=== PATIENT | male | born 1950 | race Caucasian/White ===

== ENCOUNTER 2021-01-08 19:07 | Emergency (ER) | payer MEDICARE, SELFPAY ==
[2021-01-08 19:18] VITALS: BP 145/74; PULSE 76; RESP 18; TEMP 36.5; O2SAT 99
--- NOTE | 2021-01-08 19:59 | ED.SKABFB ---
HPI - Skin/Abscess/Foreign Bdy General Chief complaint: Skin/Abscess/Foreign Body Stated complaint: right hand swelling Source: patient and RN notes reviewed Mode of arrival: ambulatory History of Present Illness HPI narrative: This is a 70-year-old male who presented to urgent care with trauma to his right hand. According the patient he was working in the yard and a branch went through his middle finger he does have a puncture wound to that finger. Patient notes that afterwards his finger swelled up and became red. At home he did clean it and covered with a Band-Aid. Patient has full range of motion with pain to the hand pulses are present, no neurovascular deficiency noted. The patient denies SOB, CP, palpitation, extremity numbness, lightheadedness, dizziness, constipation, diarrhea, chills, or fever. Related Data Allergies Allergy/AdvReac Type Severity Reaction Status Date / Time No Known Allergies Allergy Unverified 08/02/15 23:22 Review of Systems Review of Systems: A 14 organ system Review of Systems was performed and pertinent positives included in the HPI, otherwise remaining ROS is negative. [facility] Family History Family History (Updated 01/08/21 @ 20:01 by KINDRA Lopez-Leodan) Other Family history non-contributory Exam Narrative: GENERAL: This is a well-nourished, well-developed patient, in no apparent distress. HEAD: normocephalic, atraumatic. EYES: PERRL. Sclera clear/white. Vision is grossly intact. EARS: External ears normal, auditory canals clear and without drainage, TMs normal without perforation. Hearing grossly intact. NOSE: External nose normal with no obvious nasal discharge, nares without redness, no rhinorrhea. THROAT: Mucous membranes moist, posterior pharynx clear. NECK: Neck supple, non-tender without lymphadenopathy, masses or thyromegaly. CARDIOVASCULAR: Regular rate and rhythm without murmurs, gallops, or rubs. RESPIRATORY: Clear to auscultation. Breath sounds equal bilaterally. No wheezes, rales, or rhonchi. GASTROINTESTINAL: Abdomen soft, non-tender, nondistended. Bowel sounds are active. No hepato-splenomegaly, or palpable masses. No guarding. SKIN: Right middle finger edematous with erythema and 2 puncture sites, pulses are palpable patient has full range of motion. NEURO: awake, alert, and oriented to person, place and time. There were no obvious focal neurologic abnormalities. Steady gait EXTREMITIES: Normal range of motion. No edema. No calf tenderness. Negative Homans sign bilaterally. BACK: Nontender without deformity or crepitance. No flank tenderness. Course Vital Signs Vital signs: Vital Signs Temperature 97.7 F 01/08/21 19:18 Pulse Rate 76 01/08/21 19:18 Respiratory Rate 18 01/08/21 19:18 Blood Pressure 145/74 H 01/08/21 19:18 Pulse Oximetry 99 01/08/21 19:18 Temperature 97.7 F 01/08/21 19:18 Pulse Rate 76 01/08/21 19:18 Respiratory Rate 18 01/08/21 19:18 Blood Pressure 145/74 H 01/08/21 19:18 Pulse Oximetry 99 01/08/21 19:18 Discharge Plan Discharge Clinical Impression: Cellulitis Qualifiers: Site of cellulitis: extremity Site of cellulitis of extremity: upper extremity Laterality: right Qualified Code(s): L03.113 - Cellulitis of right upper limb Patient Disposition: Home, Self-Care Condition: Stable Instructions: Antibiotic Form, Cellulitis (ED) Additional Instructions: Take medications as prescribed. Follow up with Provider within 1-2 weeks. When do I need to call the doctor? Signs of infection. These include a fever of 100.4?F (38?C) or higher, chills, or wound that will not heal. Signs of wound infection. These include swelling, redness, warmth around the wound; too much pain when touched; yellowish, greenish, or bloody discharge; foul smell coming from the cut or wound site; wound site opens up; blisters form at the site. When cellulitis is on the face, any signs of spreading to the sinus or eye must be evaluated
== END 2021-01-08 20:05 | disposition home or self-care (01) ==
PROVIDERS: Emergency Provider Nurse Practitioner; PCP Family Medicine
DX: L03.113 Cellulitis of right upper limb (principal)
CPT/HCPCS: 99213; G0463

== ENCOUNTER 2021-10-23 17:44 | Emergency (ER) | payer MEDICARE, SELFPAY ==
[2021-10-23 17:50] VITALS: BP 146/82; PULSE 87; RESP 20; TEMP 36.8; O2SAT 98
--- NOTE | 2021-10-23 17:55 | ED.URI ---
HPI - URI/Sore Throat General Chief Complaint: Upper Respiratory Infection Stated Complaint: headache no appetite nausea ears Time Seen by Provider: 10/23/21 18:00 Source: patient Mode of arrival: ambulatory Limitations: no limitations History of Present Illness HPI Narrative: Mr. Stuart is a 71-year-old male patient presenting to the clinic today with complaints of fever, headache, decreased appetite, nausea, and bilateral ear pain x5 days. He reports that he has taken 2 at home COVID test and both were negative the last test he took was this morning. He denies getting his influenza vaccine so he feels that he may have the flu. MD elicited complaint: fever and nasal congestion Related Data Home Medications Medication Instructions Recorded Confirmed No Home Medications 10/23/21 10/23/21 Allergies Allergy/AdvReac Type Severity Reaction Status Date / Time No Known Allergies Allergy Verified 10/23/21 18:04 Review of Systems Review of Systems: Pertinent positives per HPI. Patient denies any fever, chills, rash, headache, visual changes, dizziness, cough, shortness of breath, chest pain, palpitations, nausea, vomiting, diarrhea, constipation, abdominal pain, or any urinary issues. [facility] Family History Family History Other Family history non-contributory Comments At the time of my signature, I reviewed and agree with the nursing past medical, surgical, social, and family history. There is no relevant family history pertinent to the patient complaint. Exam Narrative: General: Well-developed, well nourished, in no apparent distress Head: Normocephalic, atraumatic Eyes: Pupils equally round and reactive to light bilaterally, EOM intact, sclera and conjunctive clear, no discharge, lids normal Ears: TMs intact and clear, ear canals ceruminous, no drainage, grossly hearing normal. Nose: Nares patent, clear nasal discharge, moderate inflammation, no sinus tenderness. Mouth: Oral pharynx without lesions or masses, good dentition, MMM. Neck: Supple, trachea midline, no enlargement of anterior or posterior cervical nodes, no thyroid masses or goiter palpable. Cardio: Regular rate and rhythm, s1 and s2 normal, no murmur appreciated. Resp: Clear to auscultation bilaterally, no rhonchi, rales, wheezing or rubs Course Course Emergency Course: Portions of this record may have been created with voice recognition software. Level of Care: Express Care Visit Vital Signs Vital signs: Vital Signs Temperature 36.8 C 10/23/21 17:50 Pulse Rate 87 10/23/21 17:50 Respiratory Rate 20 10/23/21 17:50 Blood Pressure 146/82 H 10/23/21 17:50 Pulse Oximetry 98 10/23/21 17:50 Temperature 36.8 C 10/23/21 17:50 Pulse Rate 87 10/23/21 17:50 Respiratory Rate 20 10/23/21 17:50 Blood Pressure 146/82 H 10/23/21 17:50 Pulse Oximetry 98 10/23/21 17:50 Vital signs reviewed Procedures Ear Wax Removal Both Ears: Ear Wax Removal Date: 10/23/21 Results: Re-examined: some cerumen remains TM Examination: TM(s) intact, normal appearance Ear Canal Exam: atraumatic Patient Tolerated Procedure: well Complications: no problems Technique: ear canal irrigated and ear canal curetted Additional Comments: Bilateral ear canals ceruminous and impacted with cerumen. Verbal consent obtained to irrigate bilateral ears. Half-normal saline have warm water used to irrigate bilateral ears with successful removal of earwax with some remnants remaining. A small amount of cerumen was removed using the ear curette to the right ear. MDM - URI/Sore Throat MDM Narrative Medical decision making narrative: At the time of visit patient is resting comfortably on the exam table. Influenza testing was completed and was negative in the clinic. I suspect the patient has a viral syndrome and discussed supportive measures and he
== END 2021-10-23 18:30 | disposition home or self-care (01) ==
PROVIDERS: Emergency Provider Nurse Practitioner Family; PCP Family Medicine
DX: B34.9 Viral infection, unspecified (principal); H61.23 Impacted cerumen, bilateral
CPT/HCPCS: 69209; 87804; 99213; G0463

== ENCOUNTER 2024-12-11 12:49 | Emergency (ER) | payer MEDICARE, SELFPAY ==
--- NOTE | ~2024-12-11 | XR_ITS ---
Left Shoulder Technique: AP and axillary views were obtained. Clinical History: Injury Findings: No fracture or dislocation is seen. Osseous alignment is anatomic. The glenohumeral joint d emonstrates mild degenerative change. There is moderate AC joint degenerative change. Soft tissues ar e unremarkable. Impression: Degenerative changes, as above. Reviewed, dictated and finalized at location M. Impression: Degenerative changes, as above.
--- NOTE | ~2024-12-11 | CT_ITS ---
CT Facial Bones and Cervical Spine Clinical Indication: Injury Technique: Contiguous axial scans were obtained through the facial bones and cervical spine followed by coronal and sagittal reconstructions. Dose reduction technique was used on this scan by utilizing automated exposure control and iterative reconstruction technique. The dose-length product (DLP) was 531.38 mGy-cm. Findings: CT facial bones: No fractures are identified. The visualized paranasal sinuses are clear. Intraorbita l soft tissues appear normal. CT cervical spine: No acute fracture. There is minimal grade 1 anterolisthesis of C4 over C5. There a re mild degenerative disc changes in the cervical spine. There is advanced degenerative change at the articulation of the odontoid process with the anterior arch of C1. There is extensive facet arthropa thy in the cervical spine. There is right neural foraminal narrowing at C3-C4. There is left neural f oraminal narrowing at C4-C5. There is left neural foraminal narrowing at C5-C6. No prevertebral soft tissue swelling. Impression: No fracture is seen in the facial bones. No fracture or subluxation of the cervical spine. Degenerative change of the cervical spine, as above. Reviewed, dictated and finalized at location . Impression: No fracture is seen in the facial bones. No fracture or subluxation of the cervical spine. Degenerative change of the cervical spine, as above.
--- NOTE | ~2024-12-11 | CT_ITS ---
Non-contrast Head CT History: Head injury Technique: Axial non-contrast imaging of the brain was performed. Dose reduction technique was used on this scan by utilizing automated exposure control and iterative reconstruction technique. The dose -length product (DLP) was 605.33 mGy-cm. Findings: There is no evidence of intracranial hemorrhage, mass lesion, or acute infarct. Brain par enchyma appears normal. The ventricles and subarachnoid spaces are normal in size. The calvarium ap pears normal. The visualized paranasal sinuses and mastoid air cells are clear. Impression: No significant abnormality seen. Reviewed, dictated and finalized at location . Impression: No significant abnormality seen.
--- OUTSIDE RECORDS SUMMARY | 2024-12-11 12:52 | XMS_ITS | Continuity of Care Document ---
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, [address] [place] [address] [address] [place], [place], [id number], [place] tel:[phone] [address] [facility] [place] No Information [address] [facility] [address] [place] , [address], [place], [address], [place]. tel:[phone] Family History Family Member Type Diagnosis Age At Onset No Information Payers Payer name Insurance type Covered republican ID Authoriza tion(s) No Information Social History Type Description Quantity Date Captured Comments Sex Male Smoking Status No Information Chief Complaint And Reason For Visit No Information Reason For Referral Reason For Referral No Information History Of Present Illness Encounter Date Complaint History Of Prese nt Illness No Information Functional Status Date Functional Assessmen t No Information Instructions Date Instruction Additional Infor mation No Information Assessments Type Assessment Date No Information Patient Care Teams Name Effective Dates (start - stop) Status Members No Information
--- OUTSIDE RECORDS SUMMARY | 2024-12-11 12:52 | XMS_ITS | Data Portability ---
Author Organization [facility] [employer], Main Office Address [address] [place] [address] Assessment No assessment recorded. Plan of Treatment Reminders Order Date Submit Date Provider Last Modified By Organization Details Last Modified Time Details Appointments None recorded. Lab glycohemogl obin, total, blood 2024 025 [facility] (Lab), [address] [place], [address], 5 08:32:08 CMP, serum or plasma 2024 025 [facility] (Lab), [address] [place], [address], 5 15:15:49 TSH, serum or plasma 2024 025 [facility] (Lab), [address] [place], [address], 5 08:32:08 CBC w/ auto diff 2024 025 [facility] (Lab), [address] [place], [address], 5 08:32:09 vitamin B12, serum 2024 025 [facility] (Lab), [address] [place], [address], 5 08:32:09 vitamin D, 25-hydroxy, total, serum 2024 025 [facility] (Lab), [address] [place], [address], 5 08:32:09 magnesium, serum or plasma 2024 025 [facility] (Lab), [address] [place], [address], 5 08:32:09 PSA, serum or plasma 2024 025 [facility] (Lab), [address] [place], [address], 5 08:29:41 glycohemogl obin, total, blood 2024 025 [facility] (Lab), [address] [place], [address], 5 08:29:40 CBC w/ auto diff 2024 025 [facility] (Lab), [address] [place], [address], 5 08:29:41 vitamin D3, 25-hydroxy, serum 2024 025 [facility] (Lab), [address] [place], [address], 5 08:29:41 lipid panel, serum 2024 025 [facility] (Lab), [address] [place], [address], 5 08:29:40 hepatic function panel, serum 2024 025 [facility] (Lab), [address] [place], [address], 5 08:29:40 CMP, serum or plasma 2024 025 [email or web address] (Lab), [address] [place], [address], 5 08:29:40 glycohemogl obin, total, blood [address] (Lab), [address] [place], [address], 3 09:19:16 BMP, serum or plasma [address] (Lab), [address] [place], [address], 3 09:19:28 PSA, serum or plasma [address] (Lab), [address] [place], [address], 3 09:18:37 noninvasive colorectal cancer DNA + occult blood screening, QL, stool 2022 023 [email or web address] [address] [facility] (Cologuard Orders Only), [address], [address], [place], [address], 3 07:52:35 lipid panel, serum [address] (Lab), [address] [place], [address], 3 09:18:52 hepatic function panel, serum [address] (Lab), [address] [place], [address], 3 09:19:04 Referral None recorded. Procedures None recorded. Surgeries None recorded. Imaging None recorded. Medication Orders [employer]ora[employer] Ultra Test strips 2024 025 [id number], [address] [place], [address], 09:46:53 aripiprazol e 2 mg tablet 2022 023 [email or web address] [id number], [address] [place], [address], 08:38:05 Patient TargetsNo targets recorded. Patient Instructions Encounter Date Encounter Id Patient Instructions Last Modified By Organization Details Last Modified Time 01/18/2023 [id number] dementia rating scale-2* Not available 01/18/2023 10:45:54 multi-dimensiona l health assessment questionnaire* Not available 01/18/2023 10:46:00 care plan* [email or web address] Not available 01/04 10:46:06 advance care planning: care instructions Not available 01/18/2023 09:11:28 advance directiv es: care instructions Not available 01/18/2023 09:11:28 [place] Advance Directives Not available 01/18/2023 09:11:28 Personalized [facility] Plan and Screening Recommendations Advance Directives - Do you have one? Advance Directives - Do we have your advance directive on file in your health record? Primary Prevention/Interven tion (prevents or decreases the chance of common diseases from occurring) Smoking Risk: Non Smoker Alcohol Misuse Screening: Negative Weight: Appropriate Physical activity: Appropriate physical activity Nutrition: Good Fall Risk (screened today): Low Vaccines Pneumococcal: No further needed Influenza: Your next one in the fall of this year Chronic Disease Risks Stroke: Active diagnosis, Continue current treatment plan Heart Attack: Active diagnosis, Continue current treatment plan Clogging of the Arteries: Active diagnosis, Continue current treatment plan Diabetes: Active diagnosis, Continue current treatment plan Secondary Prevention/Interven tion (detects treatable diseases before they may cause symptoms, disability, or ) Prostate Cancer Screening: Colon Cancer Screening: Date Screening Last Performed: Eye Disease Screening: Your next exam in: Dementia Risk: Depression Screening: Active diagnosis, Continue current treatment plan Not available 01/18/2023 09:12:55 Reason for Referral None Reported. Results Created Date Observation Date Name Description Value Unit Range Abnormal Flag Note LastModifiedBy Organization Detail LastModifiedTime 01/19/2001/18/2023 LIPID PANEL cholesterol 229 mg/dL 140-19 9 high [facility] DAVID NSUS RECOM MENDA TION FOR ANNIE STERO L: ADULT CHILD LOW RISK: <200 <170 BORDE RLINE : <200- 239 ----- HIGH RISK: >240 >200 Not Available [facility] (Lab) [address] [place], [address], 01/18/2023 19:48:00 01/19/2001/18/2023 LIPID PANEL triglyceride s 75 mg/dL 0-150 NIH DAVID NSUS REPOR T RECOM MENDA TION FOR TRIGL YCERI HELEN: ADULT CHILD LOW RISK: <150 ----- BODER LINE: 150-1 99 ----- HIGH RISK: >200 ----- Not Available [facility] (Lab) [address] [place], [address], 01/18/2023 19:48:00 01/19/2001/18/2023 LIPID PANEL HDL cholesterol 63 mg/dL 40- Not Available [facility] (Lab) [address] [place], [address], 01/18/2023 19:48:00 01/19/20 23 01/18/2023 LIPID PANEL LDL cholesterol, calculated 151 mg/dL 0-130 high NIH DAVID NSUS REPOR T RECOM MENDA TIONS FOR LDL: ADULT CHILD LOW RISK <130 <110 (OPTI MAL LDL) <100 ----- BORDE RLINE : 130-1 59 ----- HIGH RISK: >160 >130 A TRIGL YCERI DE RESUL T >400 INVAL IDATE S THE CALCU LATIO N FOR LDL FRACT IONAT ION - THE LDL RESUL T WILL NOT BE REPOR WERO. Not Available [facility] (Lab) [address] [place], [address], 01/18/2023 19:48:00 01/19/20 23 01/18/2023 HEPAT IC/LI MARILEE PANEL alkaline phosphatase 101 U/L 38-126 Not Available [facility] (Lab) [address] [place], [address], 01/18/2023 19:48:05 01/19/20 23 01/18/2023 HEPAT IC/LI MARILEE PANEL alanine aminotransfe rase 20 U/L 0-50 Not Available [facility] (Lab) [address] [place], [address], 01/18/2023 19:48:05 01/19/20 23 01/18/2023 HEPAT IC/LI MARILEE PANEL aspartate aminotransfe rase 37 U/L 15-46 Not Available [facility] (Lab) [address] [place], [address], 01/18/2023 19:48:05 01/19/20 23 01/18/2023 HEPAT IC/LI MARILEE PANEL bilirubin, total 0.40 mg/dL 0.20-1 .30 Not Available [facility] (Lab) [address] [place], [address], 01/18/2023 19:48:05 01/19/20 23 01/18/2023 HEPAT IC/LI MARILEE PANEL bilirubin, conjugated (direct) 0.00 mg/dL 0.00-0 .30 Not Available [facility] (Lab) [address] [place], [address], 01/18/2023 19:48:05 01/19/20 23 01/18/2023 HEPAT IC/LI MARILEE PANEL biliurubin,u ncong. (indirect) 0.30 mg/dL 0.00-1 .1 Not Available [facility] (Lab) [address] [place], [address], 01/18/2023 19:48:05 01/19/20 23 01/18/2023 HEPAT IC/LI MARILEE PANEL total protein 7.8 g/dL 6.3-8. 2 Not Available [facility] (Lab) [address] [place], [address], 01/18/2023 19:48:05 01/19/20 23 01/18/2023 HEPAT IC/LI MARILEE PANEL albumin 4.2 g/dL 3.0-4. 4 Not Available [facility] (Lab) [address] [place], [address], 01/18/2023 19:48:05 01/19/20 23 01/18/2023 HEPAT IC/LI MARILEE PANEL globulin 3.6 g/dL 2.6-4. 2 Not Available [facility] (Lab) [address] [place], [address], 01/18/2023 19:48:05 01/19/20 23 01/18/2023 HEPAT IC/LI MARILEE PANEL A/G ratio 1.2 ratio 1.0-2. 0 Not Available [facility] (Lab) [address] [place], [address], 01/18/2023 19:48:05 01/19/20 23 01/18/2023 BASIC METAB OLIC PANEL sodium 139 mmol/ L 137-14 5 Not Available [facility] (Lab) [address] [place], [address], 01/18/2023 19:48:07 01/19/20 23 01/18/2023 BASIC METAB OLIC PANEL potassium 5.1 mmol/ L 3.5-5. 1 Not Available [facility] (Lab) [address] [place], [address], 01/18/2023 19:48:07 01/19/20 23 01/18/2023 BASIC METAB OLIC PANEL chloride 104 mmol/ L 98-107 Not Available [facility] (Lab) [address] [place], [address], 01/18/2023 19:48:07 01/19/20 23 01/18/2023 BASIC METAB OLIC PANEL carbon dioxide 30 mmol/ L 22-30 Not Available [facility] (Lab) [address] [place], [address], 01/18/2023 19:48:07 01/19/20 23 01/18/2023 BASIC METAB OLIC PANEL anion gap 10.1 mmol/ L 14-22 low Not Available [facility] (Lab) [address] [place], [address], 01/18/2023 19:48:07 01/19/20 23 01/18/2023 BASIC METAB OLIC PANEL glucose 103 mg/dL 70-99 high Not Available [facility] (Lab) [address] [place], [address], 01/18/2023 19:48:07 01/19/20 23 01/18/2023 BASIC METAB OLIC PANEL BUN 17 mg/dL 8-19 Not Available [facility] (Lab) [address] [place], [address], 01/18/2023 19:48:07 01/19/20 23 01/18/2023 BASIC METAB OLIC PANEL creatinine 0.70 mg/dL 0.66-1 .25 Not Available [facility] (Lab) [address] [place], [address], 01/18/2023 19:48:07 01/19/20 23 01/18/2023 BASIC METAB OLIC PANEL GFR >60 Refer ence Range : [place] ge GFR Healt hy Adult : >60 mL/mi n/1.7 3 m2 Chron ic Kidne y Disea se: 15-60 mL/mi n/1.7 3 m2 Kidne y Failu re: <15/m L/min /1.73 m2 www.n iddk. nih.g ov The MDRD study equat ion has not been valid ated in child romel <18 years of age; pregn ant women ; the elder ly >85 years of age; or in some racia l or ethni c subgr oups, such as Hispa nics. Outsi de the valid ated mark eters , estim ated GFR is less accur ate, requi ring clini jimena judgm ent on a case- by-ca se basis . Clini jimena inter preta tion for other races and ages must be made by the clini fifi. The MDRD study equat ion has not been valid ated for the evalu ation of serum creat inine relat ed to nutri tania l statu s or medic ation usage . For perso ns <18 years of age, a pedia tric GFR calcu lator is avail able on the [facility] websi te: https ://andreia w.robbi stuart.o rg/pr ofess ional s/kdo qi/gf r_cal culat or Not Available [facility] (Lab) [address] [place], [address], 01/18/2023 19:48:07 01/19/20 23 01/18/2023 BASIC METAB OLIC PANEL calcium 9.3 mg/dL 8.4-10 .2 Not Available [facility] (Lab) [address] [place], [address], 01/18/2023 19:48:07 01/19/20 23 01/18/2023 PSA SCREE N PSA medicare screen 3.33 NG/mL 0.00-4 .00 Not Available [facility] (Lab) [address] [place], [address], 01/18/2023 20:12:49 01/19/2001/18/2023 HEMOG LOBIN A1C HA1C 6.0 % 4.0-6. 0 Diabe ramila Scree florentino Crite vince: <5.7% Consi stent with absen ce of diabe ramila 5.7-6 .4% Consi stent with incre ased risk for diabe ramila (pred iabet es) >OR=6 .5% Consi stent with diabe ramila REFER ENCE: Diabe ramila Care 2016, 39(Casarez ppl.1 ):s13 -s22 Not Available [facility] (Lab) [address] [place], [address], 01/18/2023 20:40:18 02/02/20 23 02/01/2023 COLOG UARD cologuard result reportable NEGATI VE negati ve normal NEGAT ABNER TEST RESUL T. A negat abner Colog uard resul t indic ates a low likel ihood that a color ectal cance r (CRC) or advan glenys adeno ma (terrell omato us polyp s with more advan glenys pre-m align ant featu res) is prese nt. The chanc e that a perso n with a negat abner Colog uard test has a color ectal cance r is less than 1 in 1500 (nega tive predi ctive value >99.9 %) or has an advan glenys adeno ma is less than 5.3% (nega tive predi ctive value 94.7% ). These data are based on a prosp ectiv e cross -sect ional study of 10,00 0 indiv idual s at [facility] risk for color ectal cance r who were scree isabella with both Colog uard and colon oscop y. (Dione Stevenson et al, N Engl J Med 2014; 370(1 4):12 86-12 97) The davin l value (refe rence range ) for this assay is negat abner. COLOG UARD RE-SC REENI NG RECOM MENDA TION: Perio dic color ectal cance r scree florentino is an impor tant part of preve ntive healt hcare for asymp tomat ic indiv idual s at [place] ge risk for color ectal cance r. Follo wing a negat abner Colog uard resul t, the Ameri can Cance r Socie ty and U.S. Multi -Soci ety Task Force scree florentino guide lines recom mend a Colog uard re-sc reeni ng inter bailey of 3 years . Refer ences : Ameri can Cance r Socie ty Guide line for Color ectal Cance r Scree florentino: https ://ww w.can cer.o rg/ca ncer/ colon -rect al-ca ncer/ detec tion- diagn osis- stagi ng/ac s-rec ommen datio ns.ht ml.; Mohan CORONA, Chelsea aguirre CR, Terrence blanchard JK, Color ectal Cance r Scree florentino: Recom menda tions for Physi cians and Patie nts from the U.S. Multi -Soci ety Task Force on Color ectal Cance r Scree florentino , Am J Gastr oente rolog y 2017; 112:1 016-1 030. TEST DESCR IPTIO N: Devon site algor ithmi c harlan sis of stool DNA-b rosi yousif with hemog lobin immun oassa y. Quant itati ve value s of indiv idual bioma rkers are not repor table and are not assoc iated with indiv idual bioma rker resul t refer ence range s. Colog uard is inten ded for color ectal cance r scree florentino of adult s of eithe r sex, 45 years or older , who are at [facility] for color ectal cance r (CRC) . Colog uard has been appro eloisa for use by the U.S. FDA. The perfo rmanc e of Colog uard was estab lishe d in a cross secti onal study of [facility] adult s aged 50-84 . Colog uard perfo rmanc e in patie nts ages 45 to 49 years was estim ated by sub-g roup harlan sis of near- age group s. Colon oscop ies perfo rmed for a posit abner resul t may find as the most clini jackson signi francois sawyer n: color ectal cance r [4.0% ], advan glenys adeno ma (incl uding sessi le bernardo wero polyp s great er than or equal to 1cm diame ter) [20%] or non- advan glenys adeno ma [31%] ; or no color ectal neopl shankar [45%] . These estim ates are deriv ed from a prosp ectiv e cross -sect ional scree florentino study of 0 indiv idual s at [facility] risk for color ectal cance r who were scree isabella with both Colog uard and colon oscop y. (Dione Baker al, N Engl J Med 2014; 370(1 4):12 86-12 97.) Colog uard may produ ce a false negat abner or false posit abner resul t (no color ectal cance r or preca ncero us polyp prese nt at colon oscop y follo w up). A negat abner Colog uard test resul t does not guara ntee the absen ce of CRC or advan glenys adeno ma (pre- cance r). The curre nt Colog uard scree florentino inter bailey is every 3 years . (Amer ican Cance r Socie ty and U.S. Multi -Soci ety Task Force ). Colog uard perfo rmanc e data in a 0 patie nt pivot al study using colon oscop y as the refer ence metho d can be acces sed at the follo wing locat ion: www.e xactl abs.c om/re sulodette . Addit ional descr iptio n of the Colog uard test proce ss, warni ngs and preca ution s can be found at www.c ologu michi.c om. Not Available [facility] (Cologuard Orders Only) [address], [place], [address], 02/09/2023 03:09:40 Result Notes None recorded. Problems Name Problem SNOMED Code Status Onset Date Resolution Date Notes Provider Name and Address Organization Details Recorded Time Glucose level outside reference range 906621990 Active Not Available [facility] 3 06:13:59 Pain in thumb 005983290 Active Not Available [facility] 3 06:13:59 Anxiety 85952595 Active Not Available [facility] 3 06:13:59 Pain of hip region 38518788 Active Not Available [facility] 3 06:13:59 Hyperlipidemi a 91465024 Active Not Available [facility] 3 06:13:59 Carpal tunnel syndrome 05288217 Active Not Available [facility] 3 06:13:59 Pain of joint 75534623 Active Not Available [facility] 3 06:14:00 Hyperglycemia 73319816 Active Not Available [facility] 3 06:14:00 Acute situational disturbance 617584627 Active 2022 Olga Donald MD [address], [address], [place], [address] , [facility] 3 09:12:11 Prediabetes 767211654 Active 2022 Olga Donald MD [address], [address], [place], [address] , [facility] 3 07:45:27 Tremor 44326256 Active 2022 SELENA Leiva [address], [place], [address] , [facility] 3 08:13:07 Mood disorder 78907397 Active 2022 SELENA Leiva [address], [place], [address] , [facility] 3 08:22:17 Lethargy 812129011 Active 2024 SELENA Melvin [address], [address], [place], [address] , [facility] 5 09:40:30 Fatigue 07356801 Active 2024 SELENA Melvin [address], [place], [address] , [facility] 5 09:41:45 Problem Notes None recorded. Procedures Surgical History Date Name Laterality Status Provider Name and Address Organization Details Recorded Time 3 Medicare Wellness CPT Code, subsequent completed Olga Donald MD [address], [address], [place], [address], [place] - [facility] 01/18/2023 08:47:42 Imaging Results None recorded. Procedure Notes None recorded. Medical Equipment None Reported. Allergies Allergen ID Allergen Name Allergen Category Reaction Reaction Severity Criticality Documentation Date Start Date Code Code System Note Provider Name and Address Organization Details Recorded Time 53083 Product containin g benzodiaz epine (product) medicatio n Not available Not available Not available 08/04/2022 36771 007 SNOMED swell ing Not Available [facility] 06:18:32 Medications Name Sig Start Date Stop Date Status Note LastModified by Organization Details LastModified Time cyclobenzap rine 10 mg tablet Take 1 tablet 3 times a day by oral route as needed for 30 days. 03/10 completed Not Available Not Available Not Available atorvastati n 40 mg tablet active Not Available Not Available Not Available clindamycin HCl 300 mg capsule TAKE 1 CAPSULE BY MOUTH TWICE DAILY FOR 7 DAYS 03/31 completed Not Available Not Available Not Available benzonatate 200 mg capsule Take 1 capsule 3 times a day by oral route as needed. 09/04 completed Not Available Not Available Not Available clonazepam 0.5 mg tablet Take 1 tablet twice a day by oral route. 07/24 completed Not Available Not Available Not Available hydroxyzine pamoate 50 mg capsule Take 1 capsule 4 times a day by oral route as needed. 10/14 completed Not Available Not Available Not Available hydrocodone 10 mg-acetamin ophen 325 mg tablet Take 1 tablet every 4 hours by oral route as needed. active Not Available Not Available No t Available neomycin-ba citracin-po lymyxn 3.5 mg-400 unit-10,000 unit/gram eye oint 09/04 completed Not Available Not Available Not Available OneTouch Ultra Test strips Use once daily as directed 2024 active Not Available Not Available Not Avai lable neomycin-po lymyxin-dex ameth 3.5 mg/mL-10,00 0 unit/mL-0.1 % eye drops 09/04 completed Not Available Not Available Not Available polymyxin B sulfate 10,000 unit-trimet hoprim 1 mg/mL eye drops 09/04 completed Not Available Not Available Not Available diclofenac sodium 75 mg tablet,rajiv yed release Take 1 tablet twice a day by oral route. active Not Available Not Available No t Available metformin ER 500 mg tablet,exte nded release 24 hr 1 po qday with dinner 02/10 completed Not Available Not Available Not Available doxycycline hyclate 100 mg tablet Take 1 tablet twice a day by oral route for 7 days. 09/04 completed Not Available Not Available Not Available aripiprazol e 2 mg tablet Take 1 tablet every day by oral route for 30 days. 07/25 completed Not Available Not Available Not Available Vicodin ES 7.5 mg-300 mg tablet 07/08 completed Not Available Not Available Not Available Afluria Qd 2018- (36 mos up)(PF)60 mcg (15 mcg x4)/0.5 mL IM syringe ADM 0.5ML IM UTD 03/10 completed Not Available Not Available Not Available COVID-19 test specimen collection TEST DIRECTED. active Not Available Not Available No t Available Fluzone High-Dose Quad (PF) 240 mcg/0.7 mL IM syringe ADM 0.7ML IM UTD 03/31 completed Not Available Not Available Not Available Vitals Date Recorded Body mass index (BMI) Body height Provider Name and Address Organization Details Last Updated DateTime 07/25/2024 28.5 kg/m2 180.34 cm SELENA Melvin [address] [facility] [address], [place], [address], [facility] [employer] 07/25/2024 08:54:23 Date Recorded Body weight Body temperature Heart rate Oxygen saturation Oxygen saturation in Arterial blood by Pulse oximetry Systolic And Diastolic Provider Name and Address Organization Details Last Updated DateTime 5 41632.8 4 g 97.2 [degF] 78 /min 98 % 98 % 140/78 mm[Hg] Catherine Lara RN [facility] [employer] 08:37:57 Date Recorded Body height Body mass index (BMI) Body weight Body temperature Heart rate Oxygen saturation Oxygen saturation in Arterial blood by Pulse oximetry Systolic And Diastolic Provider Name and Address Organization Details Last Updated DateTime 5 180.34 cm 26.9 kg/m2 32499.3 3 g 97 [degF] 82 /min 96 % 96 % 140/68 mm[Hg] OCTAVIO Varghese SD [employer] [facility] [employer] 5 09:31:40 Date Recorded Body weight Body temperature Heart rate Oxygen saturation Oxygen saturation in Arterial blood by Pulse oximetry Systolic And Diastolic Provider Name and Address Organization Details Last Updated DateTime 3 34289.4 g 98.2 [degF] 56 /min 95 % 95 % 150/84 mm[Hg] Catherine Lara RN [facility] [employer] 3 08:45:09 Date Recorded Body height Body mass index (BMI) Body weight Body temperature Heart rate Oxygen saturation Oxygen saturation in Arterial blood by Pulse oximetry Systolic And Diastolic Provider Name and Address Organization Details Last Updated DateTime 3 180.34 cm 25.5 kg/m2 62757.4 g 98.7 [degF] 86 /min 98 % 98 % 138/78 mm[Hg] Vivienne Pickett RN [facility] [employer] 3 08:10:46 Date Recorded Body height Body mass index (BMI) Body weight Body temperature Heart rate Oxygen saturation Oxygen saturation in Arterial blood by Pulse oximetry Systolic And Diastolic Provider Name and Address Organization Details Last Updated DateTime 3 180.34 cm 25.4 kg/m2 19711.5 1 g 98.4 [degF] 80 /min 98 % 98 % 126/96 mm[Hg] Kristie Esquivel MA [facility] 3 08:03:22 Social History Question Answer Notes LastModified by Organizat ion Details LastModified Time Tobacco Smoking Status Former Smoker Olga Donald MD [address], [address], [facility] [employer] 01/18/2023 08:49:46 In The 14 Days Before Symptom Onset, Have You Had Close Contact With A Laboratory-confirm ed COVID-19 While That Case Was Ill? No [id number] Information not available 08/04/2022 In The 14 Days Before Symptom Onset, Have You Had Close Contact With A Person Who Is Under Investigation For COVID-19 While That Person Was Ill? No [id number] Information not available 08/04/2022 Which Illicit Or Recreational Drugs Have You Used? Marijuana [id number] Information not available 08/04/2022 What Was The Date Of Your Most Recent Tobacco Screening? 01/18/2023 Information not available 01/18/2023 Have You Recently Traveled Abroad? No [id number] Information not available 08/04/2022 Sex: Unknown Functional Status Question Answer Note LastModified by Organizat ion Details LastModified Time Do you use any illicit or recreational drugs? Yes [id number] Information not available 08/04/2022 Mental Status None recorded. Family History Relationship Description Onset Age of this Age Resolved Age Notes LastModified by Organization Details LastModified Time Father Heart disease [id number] Not available 08/04/2022 06:10:16 Father Hyperlipidem ia [id number] Not available 08/04/2022 06:10:16 Mother Hyperlipidem ia [id number] Not available 08/04/2022 06:10:16 Mother Kidney disease [id number] Not available 08/04/2022 06:10:16 Medical History Condition Response MRSA N SLEEP APNEA N ALLERGIES/HAYFEVER N LUNG DISEASE/DISORDER N INSOMNIA N HISTORY OF DRUG ABUSE N RADIATION / CHEMOTHERAPY N COPD N HIGH CHOLESTEROL / HYPERLIPIDEMIA N HYPERTHYROIDISM N BLOOD DISEASES N EAR OR HEARING PROBLEMS N HYPOTHYROIDISM N SHINGLES N DEPRESSION (INCLUDING POST ) N HAVE YOU BEEN HOSPITALIZED OR SEEN IN [facility] IN THE PAST YEAR ? N STROKE/TIA N ULCERS N OBESITY N ANEURYSM N HISTORY WITH COMPLICATIONS WITH ANESTHES IA ? N NO SIGNIFICANT PAST MEDICAL HISTORY N USE OF BLOOD THINNERS N DIABETES, TYPE N PARATHYROID DISEASE N ENT N SEASONAL ALLERGIES N HEARTBURN / REFLUX N HEPATITIS / LIVER DISEASE N SLEEP DISORDER N HEADACHES/MIGRAINES N SEIZURES/EPILEPSY N CHF N PACEMAKER N DIZZINESS N HEART DISEASE/HEART PROBLEMS N AIDS/HIV N FRACTURES N HYPERTENSION N CANCER: SPECIFY N TOURETTE'S N BLOOD TRANSFUSION N ANESTHESIA COMPLICATIONS N ANEMIA/BLOOD DISORDER N CHRONIC EAR INFECTIONS N TUBERCULOSIS N Immunizations Vaccine Type Date Status Note Provider Nam e and Address Organization Details Recorded Time Tdap 1 completed Not Available [facility] 08/04/2022 06:18:13 pneumococcal polysaccharide PPV23 1 completed Not Available [facility] 08/04/2022 06:18:13 Influenza, high-dose, trivalent, PF 9 completed Not Available [facility] 08/04/2022 06:18:13 Pneumococcal conjugate PCV 13 8 completed Not Available [facility] 08/04/2022 06:18:13 Past Encounters Encounter ID Performer Location Encounter Start Date Encounter Closed Date Diagnosis/Indication Diagnosis SNOMED-CT Code Diagnosis ICD10 Code Diagnosis Note [id number] [facility] ENT Francisco Knight [address] [place] [address] 03/31/2021 00:00:00 03/31/2021 10:53:01 [id number] Olga Donald MD [facility] Primary Care [facility] [address] [facility] [address] [place] [address] 05/20/2021 00:00:00 06/01/2021 12:05:43 [id number] Olga Donald MD [facility] Primary Care [facility] [address] [facility] [address] [place] [address] 07/15/2021 00:00:00 07/15/2021 14:36:48 [id number] Olga Donald MD [facility] Primary Care [facility] [address] [facility] [address] [place] [address] 01/18/2023 08:38:54 01/18/2023 09:18:55 Adult health examination [id number] Z00.00 Check fasting labsCologu michi normal 08/2019-col oguard repeat orderedPre vnar 13 given 10/17/17Pne umovax 23 given 07/03/20Tda p 2021PSA orderedHep C normal 2017Remain nonsmokerD oes not qualify for LDCTRecomm end shingles vaccine seriesFlu vaccine yearlyCovi d booster this fall Screening for disorder 441129159 Z13.9 Screening for malignant neoplasm of colon 972931755 Z12.11 Screening for malignant neoplasm of prostate 403650751 Z12.5 Hyperlipidemia 71745293 E78.5 Hyperglycemia 74339678 R 73.9 Acute situ ational disturbance 954923224 F43.20 slowly improvingd eclines any medication s/referral s todayno si/hif/u prn [id number] Olga Donald MD [facility] Primary Care [address] [place] [address] 03/04/2023 07:54:22 03/04/2023 14:26:00 Mood disorder 94811002 F39 Pt states tremors to matteo hands have continued, worsen with stressBeli eves this is due to his anxietydes cribes extreme highs and lows in his mood (affecting relationsh ips with family/fri ends)He is agreeable to take a daily medication will trial aripiprazo le 2mgF/u in 1 month [id number] Olga Donald MD [facility] Primary Care [address] [place] [address] 04/01/2023 07:55:19 04/01/2023 10:48:27 Mood disorder 97501619 F39 Pt is in poor spiritshe took the aripiprazo le for approx 2 and 1/2 weeks- negative side effects drugged him outHe declines taking any new medication sHe is going to manage his highs and lows through improving family/soc ial relationsh ipshe will f/u as needed Pt states tremors to matteo hands have continued, worsen with stressBeli eves this is due to his anxietydes cribes extreme highs and lows in his mood (affecting relationsh ips with family/fri ends)He is agreeable to take a daily medication will trial aripiprazo le 2mgF/u in 1 month [id number] SELENA Melvin [facility] Primary Care [address] [place] [address] 07/25/2024 08:31:38 07/25/2024 09:00:02 Adult health examination [id number] Z00.00 Discussed medication compliance and routine follow up.Discuss ed healthy diet and routine exercise.Misa oropezaiewed vaccine records and made recommenda tions as needed.Enc ouraged annual eye and dental exams, as well as twice yearly dental cleanings. Will check screening labs as listed below. Prediabetes 986432967 R7 3.03 Hyperlipidemia 59381447 E78.5 Screening for malignant neoplasm of prostate 866314209 Z12.5 Body mass index 25-29 - overweight 679324190 Z68.28 Weight: 204BMI: 28.5 [id number] SELENA Melvin [facility] Primary Care Coiln pradhan [address] [facility] [address] [place] [address] 11/07/2024 09:22:35 11/07/2024 10:21:17 Prediabetes 181063218 R73.03 Will check labs as listed below.Disc ussed adequate diet and the importance of not skipping meals. Fatigue 16856841 R53.83 Will check labs as listed below. Health Concerns Section Related Observation LastModified by Organization Detai ls LastModified Time None Recorded Concern Status LastModified by Organization Details LastModified Time None Recorded Advance Directives Directive None Recorded Payers Insurance Date Sequence Insurance Name Policy Number Policy Best Covered Member ID Best Member ID Guarantor Name 07/25/2024 1 [employer] (PPO) [id number] 1 Yanick Stuart [id number] Yanick Stuart 11/04/2024 1 [employer] (MEDICARE REPLACEMENT /ADVANTAGE - PPO) [id number] 1 Yanick Stuart [id number] Yanick Stuart Notes Date Note Type Note Provider Name and Address Organization Details Recorded Time 01/18/2023 text/html Here for wenceslao s exam. 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 Olga Donald MD [address], [facility] [address], [place], [address], [employer] [facility] [employer] 01/18/2023 09:13:40 03/04/2023 text/html pt is here with tremors to matteo hands, and extreme mood swings SELENA Leiva [address], [address], [place], [address], [employer] [facility] [employer] 03/04/2023 08:38:11 04/01/2023 text/html Pt is here for m ed f/u SELENA Leiva [address] [address], [place], [address], [employer] 04/01/2023 08:22:57 07/25/2024 text/html Patient is a 73 year old male that presents to the office for annual wellness. no daily medications Patient states physically he is fine but mentally he is NUTS and he doesn't care Patient reports he continues to work on his diet and has started exercising again but when it comes to medication he will not take them because that is just masking the problem. dsvk-ybrwjouHLH-jg deredHep C-normal 2017Colonoscopy- Cologuard (01/2023)LDCT-does not qualifyFlu- UTDCovid- UTDTdap- UTD (05/2021)Shingles- UTDPneumo- UTD SELENA Melvin [address], [address], [place], [address], [employer] 07/25/2024 08:55:12 11/07/2024 text/html Patient is a 74 year old female that presents to the office for acute visit. Patient reports a couple weeks ago he had an episode where is body got very heavy and he became lethargic and started sweating. Patient denies any pain and the time of the event. Patient states he thinks it blood sugar dropped but he didn't have a way to check it. Patient denies any similar symptoms at this time. Patient is concerned with increased fatigue recently. SELENA Melvin [address], [place], [address], [employer] 11/08/2024 08:55:09
[2024-12-11 12:54] VITALS: BP 130/79; PULSE 81; RESP 20; TEMP 36.9; O2SAT 96
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
--- OUTSIDE RECORDS SUMMARY | 2024-12-11 14:29 | XMS_ITS | Continuity of Care Document ---
Author Organization [facility] Address [address] [place] [address] [address] [place] [address] Phone Care Team Providers Care Transport Tank Technician Name Role Phone Raghu Guthrie Unavailable Unavailable Procedures Procedure Date Office/outpatient Visit, [facility] Advance Directives Directive Yes / No Effective Date File Name No Information Encounters Encounter Description Practice Location Reason(s) For Visit Diagnoses Date Provider Providers Copied on Encounter Office/outpat ient Visit, [facility], [address] [place] [address] [address], [place], [place], [id number], [place] tel:[phone] [facility] [place] No Information [address] [facility] [place] , [address], [place], [address], [place]. tel:[phone] Family History Family Member Type Diagnosis Age At Onset No Information Payers Payer name Insurance type Covered democrat ID Authoriza tion(s) No Information Social History [...]
== END 2024-12-11 14:51 | disposition home or self-care (01) ==
PROVIDERS: Emergency Provider Physician Assistant; PCP Family Medicine
DX: S09.90XA Unspecified injury of head, initial encounter (principal); V86.55XA Driver of 3- or 4- wheeled all-terrain vehicle (ATV) injured in nontraffic accident, initial encounter
CPT/HCPCS: 70450; 70486; 72125; 73030; 99284